=== PATIENT | female | born 1970 | race African-American/Black ===

== ENCOUNTER 2016-08-02 12:56 | Inpatient (IN) | payer OTHER ==
[2016-08-02 14:14] VITALS: BMI 23.5
--- NOTE | 2016-08-02 15:48 | HP ---
CIWA Score - CIWA Score Nausea/Vomitin Muscle Tremors: 3 Anxiety: 4-Mod. Anxious/Guarded Agitation: 2 Paroxysmal Sweats: 3 Orientation: 0-Oriented Tacttile Disturbances: 0-None Auditory Disturbances: 0-None Visual Disturbances: 2-Mild Sensitivity Headache: 2-Mild CIWA-Ar Total Score: 19 Admission ROS BHS - HPI Chief Complaint: "I want to get clean." Patient is here to Detox from Alcohol. Allergies/Adverse Reactions: Allergies Allergy/AdvReac Type Severity Reaction Status Date / Time lisinopril Allergy Severe Swelling Verified 08/02/16 14:43 History of Present Illness: Pt. is a 46 YO female here to Detox from Alcohol. Pt. has had 1 previous Detox admission at [facility]. Pt. also uses Cocaine on a daily basis. Exam Limitations: No Limitations - Ebola screening Have you traveled outside of the country in the last 21 days: No Have you had contact with anyone from an Ebola affected area: No Have you been sick,other than usual withdrawal symptoms: No Do you have a fever: No - Review of Systems Constitutional: Diaphoresis, Fever, Loss of Appetite, Malaise, Night Sweats, Changes in sleep EENT: reports: No Symptoms Reported Respiratory: reports: Cough, SOB with Exertion Cardiac: reports: No Symptoms Reported GI: reports: Nausea : reports: No Symptoms Reported Musculoskeletal: reports: Joint Pain (Pt. reports that she injured a muscle in posterior leg approx. 1 week ago. Pt. was assessed in ER for this injury. Pt. ambulaing with cane at time of this assessment due to injury.), Joint Stiffness Integumentary: reports: No Symptoms Reported Neuro: reports: Headache, Tremors Endocrine: reports: No Symptoms Reported Hematology: reports: Anemia (Iron-Deficiency; Takes Iron Supplement.) Psychiatric: reports: Judgement Intact, Mood/Affect Appropiate, Orientated x3, Agitated, Anxious Other Systems: Reviewed and Negative Patient History - Patient Medical History Hx Anemia: Yes (Iron-Deficiency.) Hx Asthma: Yes (Uses Albuterol Inhaler.) Hx Chronic Obstructive Pulmonary Disease (COPD): No Hx Cancer: No Hx Cardiac Disorders: No Hx Congestive Heart Failure: No Hx Hypertension: Yes (Takes medication.) Hx Hypercholesterolemia: Yes Hx Pacemaker: No HX Cerebrovascular Accident: No Hx Seizures: No Hx Dementia: No Hx Diabetes: No Hx Gastrointestinal Disorders: No (acid reflux) Hx Liver Disease: No Hx Genitourinary Disorders: No Hx Sexually Transmitted Disorders: No Hx Renal Disease (ESRD): No Hx Thyroid Disease: No Hx Human Immunodeficiency Virus (HIV): (neg. 2013) Hx Hepatitis C: No (NEGATIVE HX.) Hx Depression: Yes (Takes medication.) Hx Suicide Attempt: No (PATIENT DENIES CURRENT SI / HI.) Hx Bipolar Disorder: Yes (Takes medication.) Hx Schizophrenia: No - Patient Surgical History Past Surgical History: No Hx Neurologic Surgery: No Hx Cardiac Surgery: No Hx Lung Surgery: No Hx Breast Surgery: No Hx Breast Biopsy: No Hx Abdominal Surgery: No Hx Appendectomy: No Hx Cholecystectomy: No Hx Genitourinary Surgery: No Hx Section: No Hx Orthopedic Surgery: No Anesthesia Reaction: No - PPD History Previous Implant?: Yes Documented Results: Negative w/proof Implanted On Prior [facility] Admission?: Yes Date: 02/16/15 Results: 0 mm PPD to be Administered?: Yes - Reproductive History Patient is a Female of Child Bearing Age (11 -55 yrs old): Yes Last Menstrual Period: 06/29/16 Patient : No - Smoking Cessation Smoking history: Current every day smoker Have you smoked in the past 12 months: No Aproximately how many cigarettes per day: 20 Cigars Per Day: 0 Hx Chewing Tobacco Use: No Initiated information on smoking cessation: Yes 'Breaking Loose' booklet given: 08/02/16 (GIVEN ON UNIT.) - Substance & Tx. History Hx Alcohol Use: Yes Hx Substance Use: Yes Substance Use Type: Alcohol, Cocaine Hx Substance Use Treatment: Yes (1 Previous Detox admission at [facility].) - Substances Abused Crack Route: Smoking Frequency: Daily Amount used: $100 Age of first use: 21 Date of Last Use: 08/02/16 Alcohol- beer/vodka Route: Oral Frequency: Daily Amount used: 3-4 6 pks./1 pt. Age of first use: 14 Date of Last Use: 08/02/16 Family Disease History - Family Disease History Family Disease History: Diabetes: Mother (htn ), Other: Mother Admission Physical Exam BHS - Vital Signs Vital Signs: Vital Signs - 24 hr 08/02/16 14:04 Temperature 98.7 F Pulse Rate 78 Respiratory 20 Rate Blood Pressure 162/104 - Physical General Appearance: Yes: Nourished, Disheveled, Mild Distress, Tremorous, Irritable, Anxious, Other (Ambulates with a cane.) HEENTM: Yes: Hearing grossly Normal, Normocephalic, Normal Voice, RAMON, Pharynx Normal Respiratory: Yes: Chest Non-Tender, Lungs Clear, No Respiratory Distress Neck: Yes: No masses,lesions,Nodules, Supple, Trachea in good position Breast: Yes: Breast Exam Deferred Cardiology: Yes: Regular Rhythm, Regular Rate, S1, S2 Abdominal: Yes: Normal Bowel Sounds, Non Tender, Soft, Protuberent Genitourinary: Yes: Within Normal Limits Back: Yes: Normal Inspection Musculoskeletal: Yes: Joint Stiffness, Muscle Pain Extremities: Yes: Tremors Neurological: Yes: Fully Oriented, Alert, Normal Mood/Affect, Normal Response Integumentary: Yes: Normal Color, Dry, Warm Lymphatic: Yes: Within Normal Limits - Diagnostic (1) Cocaine dependence Current Visit: Yes Status: Acute Qualifiers: Substance use status: uncomplicated Qualified Code(s): F14.20 - Cocaine dependence, uncomplicated (2) HTN (hypertension) Current Visit: Yes Status: Chronic Qualifiers: Hypertension type: essential hypertension Qualified Code(s): I10 - Essential (primary) hypertension (3) Nicotine dependence Current Visit: Yes Status: Chronic Qualifiers: Nicotine product type: cigarettes Substance use status: uncomplicated Qualified Code(s): F17.210 - Nicotine dependence, cigarettes, uncomplicated (4) Alcohol dependence with uncomplicated withdrawal Current Visit: Yes Status: Acute (5) GERD (gastroesophageal reflux disease) Current Visit: Yes Status: Chronic Qualifiers: Esophagitis presence: without esophagitis Qualified Code(s): K21.9 - Gastro-esophageal reflux disease without esophagitis (6) Right leg injury Current Visit: Yes Status: Acute Qualifiers: Encounter type: sequela Qualified Code(s): S89.91XS - Unspecified injury of right lower leg, sequela (7) Use of cane as ambulatory aid Current Visit: Yes Status: Acute Cleared for Admission S - Detox or Rehab [facility] Level of Care: Medically Managed Detox Regimen/Protocol: Librium [facility] Breath Alcohol Content Breath Alcohol Content: 0 Urine Pregancy Test - Result Urine Test Results: Negative- NO Line Present Urine Drug Screen - Results Drug Screen Negative: No Urine Drug Screen Results: LINETTE-Cocaine
[2016-08-02] MEDS ORDERED: MAG HYDROX/AL HYDROX/SIMETH 30 ML UNIT-DOSE CUP PO PRN (16:16)
[2016-08-02] MEDS ORDERED: LOPERAMIDE HCL 2 MG CAPSULE PO PRN (16:16)
[2016-08-02] MEDS ORDERED: ACETAMINOPHEN 325 MG TABLET (FP) PO PRN (16:16)
[2016-08-02] MEDS ORDERED: guaiFENesin/D-METHORPHAN HB 10 ML UNIT-DOSE CUPS PO PRN (16:16)
[2016-08-02] MEDS ORDERED: P-EPHED 60MG/TRIPROLIDI 2.5MG TABLET PO PRN (16:16)
[2016-08-02] MEDS ORDERED: NICOTINE POLACRILEX 2 MG GUM BC PRN (16:16)
[2016-08-02] MEDS ORDERED: hydrOXYzine PAMOATE 50 MG CAPSULE (FP) PO PRN (16:16)
[2016-08-02] MEDS ORDERED: diphenhydrAMINE HCL 50 MG CAPSULE PO PRN (16:16)
[2016-08-02] MEDS ORDERED: MAGNESIUM HYDROX 2400MG/30ML ORAL SUSPENSION 30 ML CUP PO PRN (16:16)
[2016-08-02] MEDS ORDERED: chlordiazePOXIDE HCL 25 MG CAPSULE PO PRN (16:16)
[2016-08-02] MEDS ORDERED: chlordiazePOXIDE HCL 25 MG CAPSULE PO ONE (16:16)
[2016-08-02] MEDS ORDERED: MAGNESIUM CITRATE 300 ML BOTTLE PO PRN (16:16)
[2016-08-02] MEDS ORDERED: MENTHOL/PHENOL 1 EACH UD MM PRN (16:16)
[2016-08-02] MEDS ORDERED: ALBUTEROL SO4 6.7 GM HFA INHALER IH PRN (16:20)
[2016-08-02] MEDS: amLODIPine BESYLATE 10 MG TABLET (FP) PO SCH (16:54)
[2016-08-02] MEDS: chlordiazePOXIDE HCL 25 MG CAPSULE PO SCH ×2 (16:54→22:36)
[2016-08-02] MEDS: NICOTINE 21 MG/24 HOURS TOPICAL PATCH TD SCH (16:58)
[2016-08-02] MEDS: THIAMINE HCL 100 MG TABLET (FP) PO SCH (22:35)
[2016-08-02] MEDS: NAPROXEN 500 MG TABLET (FP) PO SCH (22:36)
[2016-08-03] MEDS: chlordiazePOXIDE HCL 25 MG CAPSULE PO SCH ×4 (06:58→22:35)
[2016-08-03] MEDS: NAPROXEN 500 MG TABLET (FP) PO SCH ×3 (06:59→22:35)
--- NOTE | 2016-08-03 07:48 | CONSULT ---
[facility] Psychiatric Consult - Data Date of interview: 08/03/16 Admission source: [facility] Identifying data: This is 46 years old female ambulating with cane intoxicated with: Alcohol, Crack and Nicotine Substance Abuse History: - Smoking Cessation. Smoking history: Current every day smoker. Have you smoked in the past 12 months: No. Aproximately how many cigarettes per day: 20. Cigars Per Day: 0. Hx Chewing Tobacco Use: No. Initiated information on smoking cessation: Yes. 'Breaking Loose' booklet given : 08/02/16 (GIVEN ON UNIT.). - Substance & Tx. History. Hx Alcohol Use: Yes. Hx Substance Use: Yes. Substance Use Type: Alcohol, Cocaine. Hx Substance Use Treatment: Yes (1 Previous Detox admission at [facility] - Substances Abused. Crack. Route: Smoking. Frequency: Daily. Amount used: $100. Age of first use : 21. Date of Last Use: 08/02/16. Alcohol- beer/vodka. Route: Oral. Frequency: Daily. Amount used: 3-4 6 pks./1 pt. Age of first use: 14. Date of Last Use: 08/02/16 Medical History: GERD, HTN, Anemia history, Right leg injury complications, Psychiatric History: Patikimberly t reports history of Schizoaffective disorder, Bipol ;ar disorder, reports taking prior to admission: Seroquel 100mg p[o bid. Depakote 250mg po bid. Patioent reports most recent psychiatric admission on 2003 for safety, denies suicidal history Physical/Sexual Abuse/Trauma History: Denies Additional Comment: Seroquel 100mg p[o bid. Depakote 250mg po bid Mental Status Exam - Mental Status Exam Alert and Oriented to: Person Cognitive Function: Fair Patient Appearance: Unkempt Mood: Sad Affect: Mood Congruent Patient Behavior: Talkative Speech Pattern: Appropriate Voice Loudness: Mildly Soft/Quiet Thought Process: Circumstantial Thought Disorder: Being Controlled Hallucinations: Denies Suicidal Ideation: Denies Homicidal Ideation: Denies Insight/Judgement: Fair Sleep: Difficulty falling asleep Appetite: Weight gain Muscle strength/Tone: Moderate Hypotonicity Gait/Station: Deferred Additional Comments: Seroquel 100mg p[o bid. Depakote 250mg po bid Psychiatric Findings - Problem List ([place] 1, 2,3) (1) Alcohol dependence with uncomplicated withdrawal Current Visit: Yes Status: Acute (2) Cocaine dependence Current Visit: Yes Status: Acute Qualifiers: Substance use status: uncomplicated Qualified Code(s): F14.20 - Cocaine dependence, uncomplicated (3) Nicotine dependence Current Visit: Yes Status: Chronic Qualifiers: Nicotine product type: cigarettes Substance use status: uncomplicated Qualified Code(s): F17.210 - Nicotine dependence, cigarettes, uncomplicated (4) Alcohol dependence Current Visit: No Status: Chronic (5) Schizoaffective disorder Current Visit: No Status: Chronic - Initial Treatment Plan Initial Treatment Plan: Seroquel 100mg p[o bid. Depakote 250mg po bid. Blood depakote level
[2016-08-03] MEDS ORDERED: VENLAFAXINE HCL 150 MG E.R. CAPSULE PO SCH (10:00)
[2016-08-03] MEDS ORDERED: VENLAFAXINE HCL 75 MG E.R. CAPSULES (FP) PO SCH (10:00)
[2016-08-03 10:05] LABS: MCH 24.6 pg (25.7-33.7); MCHC 31.6 g/dl (32.0-36.0); MEAN PLT VOLUME 7.9 fl (7.5-11.1); PLATELET COUNT 137 K/MM3 (134-434); RDW 21.4 % (11.6-15.6)
[2016-08-03 10:26] LABS: ALBUMIN 2.8 g/dl (3.4-5.0); ALK PHOS 67 U/L (45-117); ANION GAP 6 (8-16); BILIRUBIN,TOTAL 0.4 mg/dL (0.2-1.0); CALCIUM 8.3 mg/dL (8.5-10.1); CO2 28 mmol/L (21-32); CREATININE 0.9 mg/dL (0.55-1.02); GLUCOSE,RANDOM 112 mg/dL (74-106); SGOT/AST 91 U/L (15-37); SGPT/ALT 70 U/L (12-78); TOT PROT 6.5 g/dl (6.4-8.2)
[2016-08-03 10:43] LABS: WHITE BLOOD COUNT 1.8 K/mm3 (4.0-10.0)
--- NOTE | 2016-08-03 11:06 | PN ---
BHS CIWA - CIWA Score Nausea/Vomitin-No Nausea/No Vomiting Muscle Tremors: 4-Moderate,w/Arms Extend Anxiety: 3 Agitation: 4-Moderately Restless Paroxysmal Sweats: 3 Orientation: 0-Oriented Tacttile Disturbances: 0-None Auditory Disturbances: 0-None Visual Disturbances: 0-None Headache: 0-None Present CIWA-Ar Total Score: 14 BHS Progress Note (SOAP) Subjective: restless body aches interrupted sleep agitation sweats Objective: 08/03/16 11:05 Vital Signs Temperature 98.2 F 08/03/16 10:24 Pulse Rate 78 08/03/16 10:24 Respiratory Rate 16 08/03/16 10:24 Blood Pressure 128/65 08/03/16 10:24 O2 Sat by Pulse Oximetry (%) Laboratory Tests 08/03/16 08/03/16 08/03/16 07:00 07:00 07:00 WBC 1.8 L D RBC 4.85 Hgb 12.0 D Hct 37.8 D MCV 78.0 L MCHC 31.6 L RDW 21.4 H Plt Count 137 D MPV 7.9 Sodium 140 Potassium 3.5 Chloride 106 Carbon Dioxide 28 Anion Gap 6 L BUN 14 Creatinine 0.9 Creat Clearance w eGFR > 60 Random Glucose 112 H Calcium 8.3 L Total Bilirubin 0.4 D AST 91 H D ALT 70 D Alkaline Phosphatase 67 Total Protein 6.5 Albumin 2.8 L RPR Titer Nonreactive repeat cbc/cmp awake/alert lying in bed no acute distress Assessment: 08/03/16 11:08 withdrawal sx Plan: continue detox increase fluids f/u pending labs
[2016-08-03] MEDS: amLODIPine BESYLATE 10 MG TABLET (FP) PO SCH (12:02)
[2016-08-03] MEDS: PANTOPRAZOLE 40 MG TABLET (FP) PO SCH (12:02)
[2016-08-03] MEDS: PRENATAL VITAMINS W/ FOLIC ACID TABLET (FP) PO SCH (12:02)
[2016-08-03] MEDS: QUEtiapine FUMARATE 100 MG TABLET (FP) PO SCH ×2 (12:04→22:35)
[2016-08-03] MEDS: DIVALPROEX SODIUM 250 MG TABLET E.C. (FP) PO SCH ×2 (12:04→22:35)
[2016-08-03] MEDS: NICOTINE 21 MG/24 HOURS TOPICAL PATCH TD SCH (12:04)
[2016-08-03 18:51] LABS: URINE APPEARANCE CLOUDY; URINE BILIRUBIN NEGATIVE (NEGATIVE); URINE COLOR AMBER; URINE GLUCOSE (UA) NEGATIVE (NEGATIVE); URINE KETONE NEGATIVE (NEGATIVE); URINE LEUK ESTERASE NEGATIVE (NEGATIVE); URINE NITRITE NEGATIVE (NEGATIVE); URINE UROBILINOGEN 2.0 E.U/dl E.U./dl (0.2-1.0)
[2016-08-03 18:52] LABS: URINE BLOOD 1+ (NEGATIVE); URINE PROTEIN 1+ (NEGATIVE)
[2016-08-03 18:57] LABS: URINE BACTERIA RARE /hpf (NONE SEEN); URINE HYALINE CAST 1 /lpf; URINE MUCUS FEW; URINE WBC 4 /hpf (3-5)
[2016-08-03 19:52] LABS: CALCIUM OXALATE CRYSTALS FEW /hpf (NONE SEEN); URINE RBC 4 /hpf (0-3)
[2016-08-03] MEDS: THIAMINE HCL 100 MG TABLET (FP) PO SCH (22:35)
[2016-08-04] MEDS: chlordiazePOXIDE HCL 25 MG CAPSULE PO SCH ×2 (06:01→13:16)
[2016-08-04] MEDS: NAPROXEN 500 MG TABLET (FP) PO SCH ×3 (06:01→22:36)
[2016-08-04 09:57] LABS: BASOPHIL 0.8 % (0-2.0); EOSINOPHIL 4.8 % (0-4.5); MCH 25.1 pg (25.7-33.7); MCHC 31.9 g/dl (32.0-36.0); MEAN CELL VOLUME 78.7 fl (80-96); MEAN PLT VOLUME 7.8 fl (7.5-11.1); NEUTROPHILS 35.5 % (42.8-82.8); PLATELET COUNT 124 K/MM3 (134-434); RDW 21.7 % (11.6-15.6); WHITE BLOOD COUNT 2.2 K/mm3 (4.0-10.0)
--- NOTE | 2016-08-04 10:07 | PN ---
[facility] CIWA - CIWA Score Nausea/Vomitin-No Nausea/No Vomiting Muscle Tremors: 1-None Visible, but [place] Anxiety: 0-No Anxiety, at Ease Agitation: 0-Normal Activity Paroxysmal Sweats: 1-Minimal Palms Moist Orientation: 0-Oriented Tacttile Disturbances: 1-Very Mild Itch/Numbness Auditory Disturbances: 0-None Visual Disturbances: 0-None Headache: 0-None Present CIWA-Ar Total Score: 3 S Progress Note (SOAP) Subjective: pt oversedated states shes's ok Objective: 08/04/16 10:05 Vital Signs Temperature 98.1 F 08/04/16 06:36 Pulse Rate 74 08/04/16 06:36 Respiratory Rate 18 08/04/16 06:36 Blood Pressure 126/83 08/04/16 06:36 O2 Sat by Pulse Oximetry (%) Laboratory Tests 08/02/16 08/03/16 08/03/16 07:00 07:00 07:00 WBC 1.8 L D RBC 4.85 Hgb 12.0 D Hct 37.8 D MCV 78.0 L MCHC 31.6 L RDW 21.4 H Plt Count 137 D MPV 7.9 Neutrophils % 36.0 L Lymphocytes % 48.0 H Monocytes % 16.0 H Differential Comment Manual diff done Sodium 140 Potassium 3.5 Chloride 106 Carbon Dioxide 28 Anion Gap 6 L BUN 14 Creatinine 0.9 Creat Clearance w eGFR > 60 Random Glucose 112 H Calcium 8.3 L Total Bilirubin 0.4 D AST 91 H D ALT 70 D Alkaline Phosphatase 67 Total Protein 6.5 Albumin 2.8 L Urine Color Urine Appearance Urine pH Ur Specific [place] Urine Protein Urine Glucose (UA) Urine Ketones Urine Blood Urine Nitrite Urine Bilirubin Urine Urobilinogen Ur Leukocyte Esterase Urine RBC Urine WBC Ur Epithelial Cells Calcium Oxalate Crystal Urine Bacteria Hyaline Casts Urine Mucus RPR Titer Hepatitis C Antibody <0.1 08/03/16 08/03/16 07:00 13:20 WBC RBC Hgb Hct MCV MCHC RDW Plt Count MPV Neutrophils % Lymphocytes % Monocytes % Differential Comment Sodium Potassium Chloride Carbon Dioxide Anion Gap BUN Creatinine Creat Clearance w eGFR Random Glucose Calcium Total Bilirubin AST ALT Alkaline Phosphatase Total Protein Albumin Urine Color Lul[place] Urine Appearance Cloudy Urine pH 5.0 D Ur Specific [place] 1.035 Urine Protein 1+ H Urine Glucose (UA) Negative Urine Ketones Negative Urine Blood 1+ H Urine Nitrite Negative Urine Bilirubin Negative Urine Urobilinogen 2.0 e.u/dl H Ur Leukocyte Esterase Negative Urine RBC 4 Urine WBC 4 Ur Epithelial Cells Many Calcium Oxalate Crystal Few Urine Bacteria Rare Hyaline Casts 1 Urine Mucus Few RPR Titer Nonreactive Hepatitis C Antibody 08/04/16 11:30 pt sedated but responding appropriately aox3 Assessment: 08/04/16 10:05 withdrawal sx;s neutropenia sedated 08/04/16 11:31 Plan: cont. detox withdrawal sx,s cont. to monitoer mental status hold all meds
[2016-08-04 10:28] LABS: ALBUMIN 2.6 g/dl (3.4-5.0); ALK PHOS 65 U/L (45-117); ANION GAP 5 (8-16); BILIRUBIN,TOTAL 0.4 mg/dL (0.2-1.0); CALCIUM 8.3 mg/dL (8.5-10.1); CO2 28 mmol/L (21-32); CREATININE 0.8 mg/dL (0.55-1.02); GLUCOSE,RANDOM 82 mg/dL (74-106); SGOT/AST 52 U/L (15-37); SGPT/ALT 51 U/L (12-78); TOT PROT 5.7 g/dl (6.4-8.2)
[2016-08-04] MEDS: DIVALPROEX SODIUM 250 MG TABLET E.C. (FP) PO SCH ×2 (13:16→22:36)
[2016-08-04] MEDS: amLODIPine BESYLATE 10 MG TABLET (FP) PO SCH (13:17)
[2016-08-04] MEDS: NICOTINE 21 MG/24 HOURS TOPICAL PATCH TD SCH (13:17)
[2016-08-04] MEDS: QUEtiapine FUMARATE 100 MG TABLET (FP) PO SCH ×2 (13:17→22:36)
[2016-08-04] MEDS: PRENATAL VITAMINS W/ FOLIC ACID TABLET (FP) PO SCH (13:18)
[2016-08-04] MEDS: PANTOPRAZOLE 40 MG TABLET (FP) PO SCH (13:18)
--- NOTE | 2016-08-04 15:35 | EKG ---
Test Reason : Blood Pressure : / mmHG Vent. Rate : 077 BPM Atrial Rate : 077 BPM P-R Int : 128 ms QRS Dur : 090 ms QT Int : 410 ms P-R-T Axes : 055 033 084 degrees QTc Int : 463 ms NORMAL SINUS RHYTHM NONSPECIFIC T WAVE ABNORMALITY PROLONGED QT ABNORMAL ECG NO PREVIOUS ECGS AVAILABLE Confirmed by GAURAV MCCLELLAND, TERRY ([id number]) on 08/04/2016 3:35:26 PM Referred By: Confirmed By:TERRY NOLASCO MD
[2016-08-04] MEDS: chlordiazePOXIDE 5 MG CAPSULE PO SCH ×2 (17:07→22:36)
[2016-08-04] MEDS: THIAMINE HCL 100 MG TABLET (FP) PO SCH (22:36)
[2016-08-05] MEDS: chlordiazePOXIDE 5 MG CAPSULE PO SCH ×2 (06:37→10:34)
[2016-08-05] MEDS: NAPROXEN 500 MG TABLET (FP) PO SCH ×2 (06:37→14:37)
[2016-08-05] MEDS: amLODIPine BESYLATE 10 MG TABLET (FP) PO SCH (10:35)
[2016-08-05] MEDS: PRENATAL VITAMINS W/ FOLIC ACID TABLET (FP) PO SCH (10:35)
[2016-08-05] MEDS: NICOTINE 21 MG/24 HOURS TOPICAL PATCH TD SCH (10:35)
[2016-08-05] MEDS: PANTOPRAZOLE 40 MG TABLET (FP) PO SCH (10:35)
[2016-08-05] MEDS: DIVALPROEX SODIUM 250 MG TABLET E.C. (FP) PO SCH (10:35)
[2016-08-05] MEDS: QUEtiapine FUMARATE 100 MG TABLET (FP) PO SCH (10:35)
--- NOTE | 2016-08-05 11:38 | PN ---
BHS Progress Note (SOAP) Subjective: agitation sweats Objective: 08/05/16 11:37 Vital Signs Temperature 99.4 F 08/05/16 10:22 Pulse Rate 84 08/05/16 10:22 Respiratory Rate 20 08/05/16 10:22 Blood Pressure 119/67 08/05/16 10:22 O2 Sat by Pulse Oximetry (%) awake/alert ambulating no acute distress Assessment: 08/05/16 11:38 withdrawal sx Plan: continue detox increase fluids d/c in am
[2016-08-05 13:26] VITALS: BP 122/80; PULSE 76; TEMP 97.9
[2016-08-05] MEDS ORDERED: chlordiazePOXIDE HCL 10 MG CAPSULE PO SCH (17:00)
--- NOTE | 2016-08-05 17:37 | DS ---
[facility] Detox Discharge Summary Admission Date: 08/02/16 Discharge Date: 08/05/16 - History Present History: Alcohol Dependence, Cocaine Dependence Pertinent Past History: GERD HTN Hirsutism - Physical Exam Results Vital Signs: Vital Signs Temperature 97.9 F 08/05/16 13:25 Pulse Rate 76 08/05/16 13:25 Respiratory Rate 20 08/05/16 13:25 Blood Pressure 122/80 08/05/16 13:25 O2 Sat by Pulse Oximetry (%) Pertinent Admission Physical Exam Findings: Withdrawal sx. Laboratory Last Values WBC 2.2 K/mm3 (4.0-10.0) L 08/04/16 07:00 RBC 4.55 M/mm3 (3.60-5.2) 08/04/16 07:00 Hgb 11.4 GM/dL (10.7-15.3) 08/04/16 07:00 Hct 35.8 % (32.4-45.2) 08/04/16 07:00 MCV 78.7 fl (80-96) L 08/04/16 07:00 MCHC 31.9 g/dl (32.0-36.0) L 08/04/16 07:00 RDW 21.7 % (11.6-15.6) H 08/04/16 07:00 Plt Count 124 K/MM3 (134-434) L 08/04/16 07:00 MPV 7.8 fl (7.5-11.1) 08/04/16 07:00 Neutrophils % 35.5 % (42.8-82.8) L 08/04/16 07:00 Lymphocytes % 47.4 % (8-40) H 08/04/16 07:00 Monocytes % 11.5 % (3.8-10.2) H 08/04/16 07:00 Eosinophils % 4.8 % (0-4.5) H 08/04/16 07:00 Basophils % 0.8 % (0-2.0) 08/04/16 07:00 Differential Comment Manual diff done 08/03/16 07:00 Sodium 145 mmol/L (136-145) 08/04/16 07:00 Potassium 3.9 mmol/L (3.5-5.1) 08/04/16 07:00 Chloride 112 mmol/L (98-107) H 08/04/16 07:00 Carbon Dioxide 28 mmol/L (21-32) 08/04/16 07:00 Anion Gap 5 (8-16) L 08/04/16 07:00 BUN 15 mg/dL (7-18) 08/04/16 07:00 Creatinine 0.8 mg/dL (0.55-1.02) 08/04/16 07:00 Creat Clearance w eGFR > 60 (>60) 08/04/16 07:00 Random Glucose 82 mg/dL (74-106) D 08/04/16 07:00 Calcium 8.3 mg/dL (8.5-10.1) L 08/04/16 07:00 Total Bilirubin 0.4 mg/dL (0.2-1.0) 08/04/16 07:00 AST 52 U/L (15-37) H D 08/04/16 07:00 ALT 51 U/L (12-78) D 08/04/16 07:00 Alkaline Phosphatase 65 U/L (45-117) 08/04/16 07:00 Total Protein 5.7 g/dl (6.4-8.2) L 08/04/16 07:00 Albumin 2.6 g/dl (3.4-5.0) L 08/04/16 07:00 Urine Color Lulú 08/03/16 13:20 Urine Appearance Cloudy 08/03/16 13:20 Urine pH 5.0 (5.0-8.0) D 08/03/16 13:20 Ur Specific [place] 1.035 (1.001-1.035) 08/03/16 13:20 Urine Protein 1+ (NEGATIVE) H 08/03/16 13:20 Urine Glucose (UA) Negative (NEGATIVE) 08/03/16 13:20 Urine Ketones Negative (NEGATIVE) 08/03/16 13:20 Urine Blood 1+ (NEGATIVE) H 08/03/16 13:20 Urine Nitrite Negative (NEGATIVE) 08/03/16 13:20 Urine Bilirubin Negative (NEGATIVE) 08/03/16 13:20 Urine Urobilinogen 2.0 e.u/dl E.U./dl (0.2-1.0) H 08/03/16 13:20 Ur Leukocyte Esterase Negative (NEGATIVE) 08/03/16 13:20 Urine RBC 4 /hpf (0-3) 08/03/16 13:20 Urine WBC 4 /hpf (3-5) 08/03/16 13:20 Ur Epithelial Cells Many /hpf (FEW) 08/03/16 13:20 Calcium Oxalate Crystal Few /hpf (NONE SEEN) 08/03/16 13:20 Urine Bacteria Rare /hpf (NONE SEEN) 08/03/16 13:20 Hyaline Casts 1 /lpf 08/03/16 13:20 Urine Mucus Few 08/03/16 13:20 RPR Titer Nonreactive (NONREACTIVE) 08/03/16 07:00 Hepatitis C Antibody <0.1 s/co ratio (0.0-0.9) 08/02/16 07:00 labs noted,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 - Medication Discharge Medications: Ambulatory Orders Albuterol Sulfate Inhaler - [Ventolin Hfa Inhaler -] 2 inh PO Q4H PRN 08/02/16 Amlodipine Besylate [Norvasc -] 10 mg PO DAILY 08/02/16 Divalproex [Depakote -] 250 mg PO BID 08/02/16 Esomeprazole Mag Trihydrate [NexIUM for SUSP] 40 mg PO DAILY 08/02/16 Naproxen [Naprosyn -] 500 mg PO TID 08/02/16 Quetiapine Fumarate [Seroquel -] 100 mg PO BID 08/02/16 Divalproex [Depakote -] 250 mg PO BID #60 tablet.ec 08/03/16 Loperamide HCl [Imodium -] 4 mg PO Q6H PRN #100 capsule 08/03/16 Quetiapine Fumarate [Seroquel] 100 mg PO BID #60 tablet 08/03/16 Venlafaxine HCl ER [Effexor Xr -] 75 mg PO DAILY #30 cap.er.24h 08/03/16 Venlafaxine HCl ER [Effexor Xr -] 150 mg PO DAILY #30 cap.er.24h 08/03/16 - Diagnosis (1) Alcohol dependence with uncomplicated withdrawal Current Visit: Yes Status: Acute (2) Cocaine dependence Current Visit: Yes Status: Acute Qualifiers: Substance use status: uncomplicated Qualified Code(s): F14.20 - Cocaine dependence, uncomplicated (3) GERD (gastroesophageal reflux disease) Current Visit: Yes Status: Chronic Qualifiers: Esophagitis presence: without esophagitis Qualified Code(s): K21.9 - Gastro-esophageal reflux disease without esophagitis (4) HTN (hypertension) Current Visit: Yes Status: Chronic Qualifiers: Hypertension type: essential hypertension Qualified Code(s): I10 - Essential (primary) hypertension (5) Nicotine dependence Current Visit: Yes Status: Chronic Qualifiers: Nicotine product type: cigarettes Substance use status: uncomplicated Qualified Code(s): F17.210 - Nicotine dependence, cigarettes, uncomplicated (6) Hirsutism Current Visit: No Status: Chronic (7) Schizoaffective disorder Current Visit: No Status: Chronic - AMA Did Patient Leave Against Medical Advice: Yes
== END 2016-08-05 17:35 | disposition left against medical advice (07) | DRG 770 ==
LOC: YASAS 12:56 → Y6N 15:15
PROVIDERS: ADMIT Internal Medicine; ATTEND Internal Medicine
PROC: HZ2ZZZZ Detoxification Services for Substance Abuse Treatment (ICD-10-PCS; principal; 2016-08-05)
DX: F10.230 Alcohol dependence with withdrawal, uncomplicated (principal); F14.20 Cocaine dependence, uncomplicated; F17.210 Nicotine dependence, cigarettes, uncomplicated; F25.9 Schizoaffective disorder, unspecified; I10 Essential (primary) hypertension; J45.909 Unspecified asthma, uncomplicated; D50.9 Iron deficiency anemia, unspecified; S89.91XS Unspecified injury of right lower leg, sequela; R26.2 Difficulty in walking, not elsewhere classified; L68.0 Hirsutism
CPT/HCPCS: 36415; 80053; 81003; 81015; 85025; 85027; 86593; 93005; 93010